=== PATIENT | female | born 1990 | race Caucasian/White ===

== ENCOUNTER 2017-08-25 14:48 | Outpatient (CLI) | payer MEDICAID ==
[2017-08-25 15:13] VITALS: BP 106/71
== END 2017-08-25 16:23 | disposition home or self-care (01) ==
LOC: TRG 14:48
PROVIDERS: ATTEND Obstetrics & Gynecology
DX: O47.1 False labor at or after 37 completed weeks of gestation (principal); Z3A.39 39 weeks gestation of pregnancy

== ENCOUNTER 2017-09-08 08:34 | Inpatient (IN) | payer MEDICAID ==
[2017-09-08] MEDS ORDERED: PITOCin/NS 30 UNIT/500ML 30 UNITS/500 ML BAG IV SCH ×2 (10:00)
[2017-09-08] MEDS ORDERED: LACTATED RINGERS 1,000 ML IV SCH (10:00)
[2017-09-08] MEDS ORDERED: STADOL IV PRN (10:00)
[2017-09-08] MEDS ORDERED: SUBLIMAZE IV PRN (10:00)
[2017-09-08 10:16] LABS: Hematocrit 33.3 % (30.3-42.9); Hemoglobin 10.8 gm/dl (10.1-14.3); Mean Corpuscular HGB Conc 33 % (30-34); Mean Corpuscular Hemoglobin 25 pg (28-32); Mean Corpuscular Volume 78 fl (79-97); Platelet Count 151 K/mm3 (140-440); Red Blood Count 4.27 M/mm3 (3.65-5.03); Red Cell Distribution Width 14.7 % (13.2-15.2); White Blood Count 9.6 K/mm3 (4.5-11.0)
[2017-09-08] MEDS ORDERED: BRETHINE IVP PRN (10:30)
[2017-09-08] MEDS ORDERED: PITOCin/NS 20 UNIT/1000ML DRIP 20 UNITS/1,000 ML BAG IV SCH (10:30)
[2017-09-08] MEDS ORDERED: XYLOCAINE 2% INFILTRATI ONE (10:30)
[2017-09-08] MEDS ORDERED: BRETHINE SUB-Q PRN (10:30)
[2017-09-08] MEDS ORDERED: ePHEDrine SULFATE IV PRN (10:30)
[2017-09-08] MEDS ORDERED: MINERAL OIL PO PRN (10:30)
[2017-09-08] MEDS ORDERED: XYLOCAINE MPF 2% ONE (13:43)
[2017-09-08] MEDS ORDERED: METHERGINE IM ONE ×2 (13:43→13:44)
[2017-09-08] MEDS ORDERED: CYTOTEC ONE (13:58)
--- NOTE | 2017-09-08 13:59 | History and Physical Report ---
History of Present Illness Date of examination: 09/08/17 Date of admission: 09/08/17 08:34 Chief complaint: postdates History of present illness: 27y/o @ 41+0 weeks presents for induction of labor for postdates. The patient initiated care @ 14 weeks ega. complicated by a history of a delivery @ 35 weeks, +HSV II status, anemia, and depression. She denies any recent prodrome. GBS negative. 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 History: herpes Social history: single - Obstetrical History Expected Date of Delivery: 09/01/17 Actual Gestation: 41 Week(s) 0 Day(s) : 5 Para: 4 Hx # Term Pregnancies: 3 Number of Pregnancies: 1 Spontaneous Abortions: 0 Induced : 0 Number of Living Children: 4 Medications and Allergies Allergies Allergy/AdvReac Type Severity Reaction Status Date / Time Latex, Natural Rubber Allergy Itching Verified 04/23/14 13:14 Home Medications Medication Instructions Recorded Confirmed Last Taken Type Iron [Iron] 1 tab PO DAILY 04/23/14 04/23/14 04/23/14 History Vit-Fe Fumar-FA [ 1 tab PO DAILY 04/23/14 04/23/14 04/23/14 09: 00 History Vitamin] valACYclovir [Valtrex] 500 mg PO DAILY 04/23/14 04/23/14 04/23/14 09:00 History Ferrous Sulfate [Feosol 325 MG tab] 325 mg PO BID #60 tablet 04/25/14 Unknown Rx HYDROcodone/APAP 5-325 [Redfox 1 each PO Q6HR PRN #30 tablet 04/25/14 Unknown Rx 5/325] Ibuprofen [Motrin 600 MG tab] 600 mg PO Q6H PRN #30 tablet 04/25/14 Unknown Rx Active Meds: Active Medications Butorphanol Tartrate (Stadol) 1 mg IV Q2H PRN PRN Reason: Pain, Moderate (4-6) Last Admin: 09/08/17 12:09 Dose: 1 mg Ephedrine Sulfate (Ephedrine Sulfate) 10 mg IV Q2M PRN PRN Reason: Hypotension Fentanyl (Sublimaze) 100 mcg IV Q2H PRN PRN Reason: Labor Pain Last Admin: 09/08/17 13:46 Dose: 100 mcg Lactated Ringer's (Lactated Ringers) 1,000 mls @ 125 mls/hr IV DIRECT ANDRZEJ Last Admin: 09/08/17 10:23 Dose: 125 mls/hr Oxytocin/Sodium Chloride (Pitocin/Ns 20 Unit/1000ml Drip) 20 units in 1,000 mls @ 125 mls/hr IV DIRECT ANDRZEJ Oxytocin/Sodium Chloride (Pitocin/Ns 30 Unit/500ml) 30 units in 500 mls @ 4 mls /hr IV TITR ANDRZEJ PRN Reason: Protocol Oxytocin/Sodium Chloride (Pitocin/Ns 30 Unit/500ml) 30 units in 500 mls @ 1 mls /hr IV TITR ANDRZEJ; 1 MILLIUNITS/MIN PRN Reason: Protocol Last Titration: 09/08/17 13:22 Dose: 0 milliunits/min, 0 mls/hr Mineral Oil (Mineral Oil) 30 ml PO QHS PRN PRN Reason: Constipation Terbutaline Sulfate (Brethine) 0.25 mg SUB-Q ONCE PRN PRN Reason: Hyperstimulation/Hypertonicity Terbutaline Sulfate (Brethine) 0.25 mg IVP ONCE PRN PRN Reason: Hyperstimulation/Hypertonicity Review of Systems Genitourinary: no leakage of fluid - Vital Signs Vital signs: Vital Signs Temp Resp 98 F 16 09/08/17 09:29 09/08/17 09:29 Temp Pulse Resp BP Pulse Ox 98.1 F 63 18 118/69 09/08/17 12:10 09/08/17 13:29 09/08/17 12:39 09/08/17 13:29 - Physical Exam Breasts: Positive: deferred Cardiovascular: Regular rate Lungs: Positive: Clear to auscultation Abdomen: Positive: normal appearance Results Result Diagrams: 09/08/17 10:00 Abnormal lab results 09/08/17 Range/Units 10:00 MCV 78 L (79-97) fl MCH 25 L (28-32) pg All other labs normal. Assessment and Plan - Patient Problems (1) Post-term Current Visit: Yes Status: Acute Plan to address problem: admit for induction of labor
[2017-09-08] MEDS ORDERED: CYTOTEC PR ONE (14:00)
--- NOTE | 2017-09-08 14:02 | Procedure Note ---
OB Delivery Note - Delivery Date of Delivery: 09/08/17 Surgeon: PENNY VINSON Estimated blood loss: 500cc - Vaginal Delivery presentation: vertex Delivery position: OA Intrapartum events: uterine atony Delivery augmentation: pitocin Delivery monitor: external FHT Route of delivery: Delivery placenta: spontaneous Delivery cord: 3 umbilical vessels Episiotomy: none Delivery laceration: 2nd degree Delivery repair: vicryl Anesthesia: epidural Delivery comments: The patient progressed to complete complete. She had spontaneous rupture of membranes with evidence of clear fluid. The patient pushed to deliver a liveborn female infant with Apgars of 8 and 9 weight 7 lbs. 6 oz. The cord was clamped and cut 2. The placenta delivered spontaneously intact. The patient sustained a midline second-degree perineal laceration that was repaired with 2- 0 Vicryl in normal fashion. The third stage of labor was complicated by uterine atony with estimated blood loss of 500 mL. The patient received Cytotec per rectum for medical management. - A at 1 minute: 8 at 5 minutes: 9 Infant Gender: Female (weight 7 lbs. 6 oz.)
[2017-09-08] MEDS ORDERED: NORCO 5/325 PO PRN (14:30)
[2017-09-08] MEDS ORDERED: TYLENOL PO PRN (14:30)
[2017-09-08] MEDS ORDERED: BENADRYL PO PRN (14:30)
[2017-09-08] MEDS ORDERED: ZOFRAN IV PRN (14:30)
[2017-09-08] MEDS ORDERED: PHENERGAN PR PRN (14:30)
[2017-09-08] MEDS ORDERED: PHENERGAN PO PRN (14:30)
[2017-09-08] MEDS ORDERED: SODIUM CHLORIDE FLUSH SYRINGE 10 ML IV PRN (15:00)
[2017-09-08] MEDS: MOTRIN PO SCH ×2 (16:15→22:23)
[2017-09-08] MEDS: TUCKS PAD TP PRN (16:32)
[2017-09-08] MEDS ORDERED: DULCOLAX PR PRN (22:00)
[2017-09-08] MEDS ORDERED: MILK OF MAGNESIA PO PRN (22:00)
[2017-09-08] MEDS ORDERED: NACL 0.9% 1000 ML 1,000 ML IV SCH (23:45)
[2017-09-09 02:16] LABS: Hematocrit 22.8 % (30.3-42.9); Hemoglobin 7.4 gm/dl (10.1-14.3)
[2017-09-09] MEDS: MOTRIN PO SCH ×4 (06:16→20:20)
--- NOTE | 2017-09-09 08:13 | Progress Note ---
Assessment and Plan A: PPD#1 s/p at term; hemorrhage, Acute blood loss anemia P: routine care. Anticipate discharge tomorrow. Subjective - Subjective Date of service: 09/09/17 Principal diagnosis: s/p at term, Hemorrhage, Anemia Interval history: Patient without complaints. Patient reports: appetite normal, voiding normally, pain well controlled, ambulating normally, no dizzy ambulation, no nauseated : doing well Objective - Vital Signs Latest vital signs: Vital Signs Temp Pulse Resp BP BP 09/09/17 06:16 16 09/09/17 02:05 98.5 F 88 16 100/60 09/08/17 23:23 16 09/08/17 22:23 18 09/08/17 15:40 99.9 F H 70 16 120/48 09/08/17 14:58 71 104/62 09/08/17 14:28 63 101/63 09/08/17 14:12 97.1 F L 18 09/08/17 14:11 70 117/51 09/08/17 13:58 66 91/52 09/08/17 13:29 63 118/69 09/08/17 12:59 80 113/67 09/08/17 12:39 18 09/08/17 12:29 67 113/67 09/08/17 12:10 98.1 F 09/08/17 12:09 18 09/08/17 11:59 68 115/73 09/08/17 11:28 67 109/71 09/08/17 11:00 62 108/67 09/08/17 10:28 68 106/68 09/08/17 09:32 70 108/72 09/08/17 09:29 98 F 16 Intake and Output 09/08/17 09/09/17 09/09/17 22:59 06:59 14:59 Intake Total 120 Output Total 600 Balance -480 Intake: Oral 120 Output: Urine 600 Indwelling Catheter 200 Void 400 Other: Total, Intake Amount 120 Total, Output Amount 400 - Exam Breasts: Present: deferred Cardiovascular: Present: Regular rate Lungs: Present: Clear to auscultation Abdomen: Present: soft Uterus: Present: fundal height at umbilicus Extremities: Present: normal - Labs Labs: Abnormal lab results 09/08/17 09/09/17 Range/Units 10:00 02:01 Hgb 7.4 L D (10.1-14.3) gm/dl Hct 22.8 L D (30.3-42.9) % MCV 78 L (79-97) fl MCH 25 L (28-32) pg
--- NOTE | 2017-09-09 08:14 | Discharge Summary ---
Providers - Providers Date of Admission: 09/08/17 08:34 Date of discharge: 09/10/17 Attending physician: ADAM BELTRÁN Primary care physician: BOILER/CHILLER OPERATOR Hospitalization Reason for admission: induction of labor Delivery: Procedure details: Please see delivery note. Episiotomy: none Laceration: 2nd degree Other procedures: none complications: uterine atony, other ( hemorrhage) Discharge diagnosis: IUP at term delivered baby: female Hospital course: Patient was admitted for induction of labor and ultimately went on to have a spontaneous vaginal delivery which she tolerated well. She then had hemorrhage and acute blood loss anemia. Remainder of her course, she met discharge criteria on postoperative day #2. She'll follow-up in the office in 2 weeks with Geovanna Jain. Condition at discharge: Stable Disposition: DC-01 TO HOME OR SELFCARE - Discharge Diagnoses (1) Term of female Status: Acute (2) hemorrhage Status: Acute Qualifiers: hemorrhage type: unspecified Qualified Code(s): O72.1 - Other immediate hemorrhage (3) Acute blood loss anemia Status: Acute Plan - Discharge Medications Prescriptions: Docusate Sodium [Colace] 100 mg PO BID PRN #60 capsule PRN Reason: Constipation Ferrous Sulfate [Feosol] 325 mg PO TID #90 tablet HYDROcodone/ACETAMINOPHEN [[place] 5-325 Tablet] 1 each PO Q6H PRN #30 tablet PRN Reason: Pain Ibuprofen [Motrin] 800 mg PO Q8HR PRN #30 tablet PRN Reason: Pain - Provider Discharge Summary Activity: routine, no sex for 6 weeks, no heavy lifting 4 weeks, no strenuous exercise Diet: routine Instructions: routine Additional instructions: [] Smoking cessation referral if applicable(refer to patient education folder for contact #) [] Refer to [facility] Booklet Call your doctor immediately for: * Fever > 100.5 * Heavy vaginal bleeding ( >1 pad per hour) * Severe persistent headache * Shortness of breath * Reddened, hot, painful area to leg or breast * Drainage or odor from incision. * Keep incision clean and dry at all times and follow doctor's instructions regarding bathing/showering - Follow up plan Follow up: GEOVANNA JAIN CNM [Advanced Practice Nurse] - 09/22/17 (please call to schedule exam )
[2017-09-09] MEDS ORDERED: DERMOPLAST TP PRN (17:28)
[2017-09-09 17:56] LABS: Hematocrit 25.3 % (30.3-42.9); Hemoglobin 8.2 gm/dl (10.1-14.3)
[2017-09-09] MEDS: TUCKS PAD TP PRN (18:59)
[2017-09-10] MEDS: MOTRIN PO SCH (05:20)
[2017-09-10 08:49] VITALS: BP 100/64
== END 2017-09-10 10:00 | disposition home or self-care (01) | DRG 774 ==
LOC: LD 08:34 → OB 15:48
PROVIDERS: ADMIT Obstetrics & Gynecology; ATTEND Obstetrics & Gynecology
PROC: 10E0XZZ Delivery of Products of Conception, External Approach (ICD-10-PCS; principal; 2017-09-08)
PROC: 0KQM0ZZ Repair Perineum Muscle, Open Approach (ICD-10-PCS; 2017-09-08)
PROC: 3E0R3BZ Introduction of Anesthetic Agent into Spinal Canal, Percutaneous Approach (ICD-10-PCS; 2017-09-08)
PROC: 00HU33Z Insertion of Infusion Device into Spinal Canal, Percutaneous Approach (ICD-10-PCS; 2017-09-08)
DX: O48.0 Post-term pregnancy (principal); O98.52 Other viral diseases complicating childbirth; D62 Acute posthemorrhagic anemia; O72.1 Other immediate postpartum hemorrhage; B00.9 Herpesviral infection, unspecified; O99.344 Other mental disorders complicating childbirth; F32.9 Major depressive disorder, single episode, unspecified; O70.1 Second degree perineal laceration during delivery; Z3A.41 41 weeks gestation of pregnancy; Z37.0 Single live birth
CPT/HCPCS: 36415; 85014; 85018; 85027; 86592; 86850; 86900; 86901; 99211; G0463; J0595; J2210; J2590; J3010; J7030; J7120